=== PATIENT | female | born 1955 | race Caucasian/White ===

== ENCOUNTER 2024-02-04 17:19 | Inpatient (IN) | payer OTHER, MEDICARE ==
[2024-02-04] MEDS ORDERED: Naloxone 0.4 MG/ML SDV IVPUSH PRN (17:32)
[2024-02-04] MEDS: fentaNYL 100 MCG/2 ML SDV IVPUSH ONE ×4 (17:37→21:31)
[2024-02-04 17:45] LABS: BASOPHILS PERCENT AUTO 0.5 % (0.0-1.0); EOSINOPHILS ABSOLUTE AUTO 0.1 K/mm3 (0.0-0.4); EOSINOPHILS PERCENT AUTO 1.8 % (0.0-6.0); HEMATOCRIT 40.5 % (37.0-47.0); HEMOGLOBIN 13.3 gm/dl (12.0-16.0); IMMATURE GRAN ABSOLUTE AUTO 0.01 K/mm3 (0.00-0.05); IMMATURE GRAN PERCENT AUTO 0.2 % (0.0-0.4); LYMPHOCYTES ABSOLUTE AUTO 1.6 K/mm3 (1.0-4.8); LYMPHOCYTES PERCENT AUTO 26.2 % (24.0-44.0); MEAN CORPUSCULAR HEMOGLOBIN 28.9 pg (28.0-32.0); MEAN CORPUSCULAR HGB CONC 32.8 g/dl (32.0-36.0); MEAN PLATELET VOLUME 9.7 fl (9.4-12.3); MONOCYTES ABSOLUTE AUTO 0.5 K/mm3 (0.0-0.8); NEUTROPHILS ABSOLUTE AUTO 3.8 K/mm3 (1.8-7.7); NEUTROPHILS PERCENT AUTO 63.3 % (41.0-71.0); PLATELET COUNT,PLT 259 K/mm3 (150-400); WHITE BLOOD CELL COUNT,WBC 6.03 K/mm3 (3.9-11.3)
[2024-02-04 18:06] LABS: A/G RATIO 1.2 (1-2); ALANINE AMINOTRANSFERASE,ALT 22 U/L (14-59); ALBUMIN 3.6 g/dl (3.4-5.0); ALKALINE PHOSPHATASE 63 U/L (46-116); ANION GAP 14.8 (5-15); ASPARTATE AMNIOTRANSFERASE,AST 16 U/L (15-37); BILIRUBIN TOTAL 0.3 mg/dL (0.2-1.0); BLOOD UREA NITROGEN,BUN 12 mg/dL (7-18); BUN/CREATININE RATIO 13.3 (14-18); CALCIUM 8.6 mg/dL (8.5-10.1); CARBON DIOXIDE,CO2 26 mEq/L (21-32); CHLORIDE,CL 103 mEq/L (98-107); CREATININE 0.9 mg/dL (0.55-1.02); ESTIMATED GFR 69 mL/min (>60); GLUCOSE RANDOM 107 mg/dL (70-99); MAGNESIUM 1.9 mg/dL (1.8-2.4); POTASSIUM,K 3.8 mEq/L (3.5-5.1); PROTEIN TOTAL,TP 6.7 g/dl (6.4-8.2); SODIUM,NA 140 mEq/L (136-145)
[2024-02-04] MEDS ORDERED: Acetaminophen 325 MG Tab PO PRN (20:35)
[2024-02-04] MEDS ORDERED: HYDROmorphone 0.5 MG/0.5 ML Syringe IVPUSH PRN (20:46)
[2024-02-04] MEDS: Ketorolac 30 MG/ML SDV IVPUSH PRN (21:27)
[2024-02-04 22:09] LABS: APPEARANCE,URINE SLT CLOUDY (Clear); BILIRUBIN,URINE NEGATIVE (Negative); COLOR,URINE YELLOW (Yellow); GLUCOSE,URINE NEGATIVE (Negative); KETONES,URINE 2+ (Negative); LEUKOCYTE ESTERASE,URINE TRACE (Negative); NITRITE,URINE NEGATIVE (Negative); OCCULT BLOOD,URINE NEGATIVE (Negative); PH,URINE 7.5 (5.0-8.0); PROTEIN,URINE 1+ (Negative); UROBILINOGEN,URINE 0.2 (0.2-1.0)
[2024-02-04] MEDS: Ondansetron 4 MG Tab.DIS PO PRN (22:11)
[2024-02-04 22:37] LABS: RBC,URINE 0-5 /hpf (0-5); SQUAMOUS EPITHELIAL CELLS,UR 0-5 /hpf (0-5); WBC,URINE 0-5 /hpf (0-5)
[2024-02-04 22:38] LABS: AMORPHOUS SEDIMENT,URINE FEW /hpf (NOT SEEN); BACTERIA,URINE FEW /hpf (FEW); MUCUS,URINE FEW /hpf (FEW)
[2024-02-05] MEDS: Enoxaparin 40 MG/0.4 ML Syringe SUBCUT SCH (09:13)
[2024-02-05] MEDS: Acetaminophen/HYDROcodone 325-5 MG Tab PO PRN ×2 (09:14→17:09)
[2024-02-05] MEDS ORDERED: Calcium Polycarbophil 625 MG Tab PO SCH (10:00)
[2024-02-05] MEDS: Calcium Polycarbophil 625 MG Tab PO SCH (10:49)
[2024-02-05] MEDS: Polyethylene Glycol 3350 Powder 17 GM Packet PO SCH (10:50)
[2024-02-05] MEDS: Levothyroxine 125 MCG Tab PO SCH (10:50)
[2024-02-05] MEDS ORDERED: fentaNYL 100 MCG/2 ML SDV IVPUSH PRN (11:20)
[2024-02-05] MEDS ORDERED: Acetaminophen/oxyCODONE 325-5 MG Tab PO PRN (11:22)
[2024-02-05] MEDS: Docusate Sodium 100 MG Cap PO SCH (11:39)
[2024-02-05] MEDS: Ondansetron 4 MG/2 ML SDV IVPUSH ONE (16:38)
[2024-02-05] MEDS ORDERED: Acetaminophen/HYDROcodone 325-5 MG Tab PO PRN (18:04)
[2024-02-05] MEDS: Metoclopramide 10 MG/2 ML SDV IVPUSH ONE (20:05)
[2024-02-05] MEDS: Ketorolac 10 MG Tab PO PRN (20:10)
[2024-02-05] MEDS: Acetaminophen 325 MG Tab PO SCH (20:12)
[2024-02-05] MEDS: Metoclopramide 10 MG Tab PO PRN (20:13)
[2024-02-06] MEDS: Cyclobenzaprine 10 MG Tab PO PRN (01:06)
[2024-02-06 05:00] LABS: BASOPHILS PERCENT AUTO 0.2 % (0.0-1.0); EOSINOPHILS PERCENT AUTO 0.4 % (0.0-6.0); HEMATOCRIT 35.3 % (37.0-47.0); HEMOGLOBIN 11.7 gm/dl (12.0-16.0); IMMATURE GRAN ABSOLUTE AUTO 0.01 K/mm3 (0.00-0.05); IMMATURE GRAN PERCENT AUTO 0.2 % (0.0-0.4); LYMPHOCYTES ABSOLUTE AUTO 1.2 K/mm3 (1.0-4.8); MEAN CORPUSCULAR HEMOGLOBIN 29.2 pg (28.0-32.0); MEAN CORPUSCULAR HGB CONC 33.1 g/dl (32.0-36.0); MONOCYTES ABSOLUTE AUTO 0.5 K/mm3 (0.0-0.8); NEUTROPHILS PERCENT AUTO 70.2 % (41.0-71.0); PLATELET COUNT,PLT 194 K/mm3 (150-400); RED BLOOD CELL COUNT 4.01 M/mm3 (4.10-5.30); WHITE BLOOD CELL COUNT,WBC 5.63 K/mm3 (3.9-11.3)
[2024-02-06 05:24] LABS: ALBUMIN 2.9 g/dl (3.4-5.0); ANION GAP 12.9 (5-15); BILIRUBIN TOTAL 0.4 mg/dL (0.2-1.0); BUN/CREATININE RATIO 12.2 (14-18); CALCIUM 8.2 mg/dL (8.5-10.1); CREATININE 0.9 mg/dL (0.55-1.02); EST CRCL DRUG DOSING (CG) 48.8 mL/min; MAGNESIUM 1.4 mg/dL (1.8-2.4); POTASSIUM,K 3.9 mEq/L (3.5-5.1); PROTEIN TOTAL,TP 5.8 g/dl (6.4-8.2)
[2024-02-06] MEDS ORDERED: Acetaminophen 325 MG Tab PO PRN (05:40)
[2024-02-06] MEDS: Acetaminophen/HYDROcodone 325-5 MG Tab PO PRN (07:18)
[2024-02-06] MEDS ORDERED: Sodium Chloride 0.9% 1,000 ML IV SCH (08:00)
[2024-02-06] MEDS: Famotidine 20 MG Tab PO SCH (08:04)
[2024-02-06] MEDS: Magnesium Oxide 400 MG Tab PO ONE (08:04)
[2024-02-06] MEDS: Magnesium Oxide 400 MG Tab PO SCH (08:04)
== END 2024-02-06 14:45 | disposition home or self-care (01) | DRG 563 ==
LOC: JD.ED 17:19 → EDBD 17:19 → JD.MS 19:32 → OBSVTOIN 02-05 07:55
PROVIDERS: ADMIT Family Medicine; ATTEND Internal Medicine
DX: S42.292A Other displaced fracture of upper end of left humerus, initial encounter for closed fracture (principal); S42.212A Unspecified displaced fracture of surgical neck of left humerus, initial encounter for closed fracture; Z88.6 Allergy status to analgesic agent; V28.01XA Electric (assisted) bicycle driver injured in noncollision transport accident in nontraffic accident, initial encounter; Z66 Do not resuscitate; R11.0 Nausea; E03.9 Hypothyroidism, unspecified; K21.9 Gastro-esophageal reflux disease without esophagitis; K59.09 Other constipation; Z88.8 Allergy status to other drugs, medicaments and biological substances; Z79.899 Other long term (current) drug therapy; Z87.19 Personal history of other diseases of the digestive system; Z86.16 Personal history of COVID-19; Z98.890 Other specified postprocedural states; V29.91XA Electric (assisted) bicycle rider (driver) (passenger) injured in unspecified traffic accident, initial encounter
CPT/HCPCS: 36415; 71250; 73200; 80053; 81001; 83735; 85025; 87086; A9270; J1885 ×2; J3010 ×4; 97161-GP; 97530-GP; 99222; 99239; J1650; J2405